=== PATIENT | female | born 1970 | race Caucasian/White ===

== ENCOUNTER 2018-07-03 23:00 | Emergency (ER) | payer BC ==
[2018-07-04] MEDS ORDERED: Activated Charcoal 50gm/240ml Btl ORAL ONE (00:03)
--- NOTE | 2018-07-04 05:00 | NUR ---
ED Nurse Note: SEE PAPER CHARTING FOR PREVIOUS NOTED, PT IS IN BED AWAKE, ALERT AND ORIENTED X 4, PT IS ON 5150 HOLD AND SUICIDAL PRECAUTIONS, IV SITE PATENT, V/S STABLE, NO SOB OR LABORED BREATHING, PT IS IN ROOM CALM AND COOPERATIVE, PLEASANTLY SLEPT ALL NIGHT, PT DENEIS CP OR ANY PAIN, NAD NOTED, WILL CONTINUE TO CLOSELY MONITOR.
[2018-07-04 06:00] LABS: ALANINE AMINOTRANSFERASE 26 U/L (12-78); ALBUMIN 3.7 G/DL (3.4-5.0); ALBUMIN/GLOBULIN RATIO 1.2 (1.0-2.7); ALKALINE PHOSPHATASE 34 U/L (46-116); ANION GAP 11 mmol/L (5-15); ASPARTATE AMINO TRANSFERASE 20 U/L (15-37); BILIRUBIN,TOTAL 0.1 MG/DL (0.2-1.0); BLOOD UREA NITROGEN 10 mg/dL (7-18); CARBON DIOXIDE 25 MMOL/L (21-32); CHLORIDE 105 MMOL/L (98-107); CREATININE 0.7 MG/DL (0.55-1.30); POTASSIUM 3.5 MMOL/L (3.5-5.1); SODIUM 141 MMOL/L (136-145)
[2018-07-04 06:06] LABS: COLOR,URINE PALE YELLOW
[2018-07-04 06:07] LABS: APPEARANCE,URINE CLEAR; BILIRUBIN, URINE NEGATIVE (NEGATIVE); GLUCOSE, URINE (UA) NEGATIVE (NEGATIVE); KETONES,URINE NEGATIVE (NEGATIVE); LEUKOCYTE ESTERASE ,URINE NEGATIVE (NEGATIVE); NITRITE,URINE NEGATIVE (NEGATIVE); PH,URINE 5 (4.5-8.0); PROTEIN,URINE NEGATIVE (NEGATIVE); UROBILINOGEN,URINE NORMAL MG/DL (0.0-1.0)
--- NOTE | 2018-07-04 06:07 | Emergency Room Report ---
History of Present Illness General Source: Patient, Medical Record, EMS Present Illness HPI This is a 47-year-old female with history bipolar. She presents with chief complaint of drug overdose. She had argument with her boyfriend in decided to kill herself by taking all of her Xanax and Klonopin. She claimed that she took a whole bottle of Xanax and about 20 tablets of Klonopin. She wrote a note and sent it to her friend. The friend called 911. This occurred about 2 hours prior to arrival. Patient denies any fever chills but denies any nausea vomiting. [place] depressed. Denies any other complaint. Police placed her on a 5150 hold. Patient History Past Medical History: see triage record, old chart reviewed, bipolar Past Surgical History: other Family History: none Social History: tobacco use, ETOH Now: No Immunizations: other Reviewed Nursing Documentation: PMH: Agreed; PSxH: Agreed Review of Systems ENT: Denies: sore throat Cardiovascular: Denies: chest pain, palpitations Gastrointestinal/Abdominal: Denies: nausea, vomiting, diarrhea Musculoskeletal: Denies: back problems Skin: Denies: rash Psychiatric: Reports: prior history, depression, suicidal/homicidal ideations Neurological: Denies: LAIRD, seizures All Other Systems: negative except mentioned in HPI Physical Exam [id number] EP Interpretation: reviewed, normal General Appearance: alert/responsive, no apparent distress, non-toxic Head: normocephalic, atraumatic Eyes: PERRL, EOMI ENT: oropharynx normal Neck: supple/symm/no masses Respiratory: effort normal, no rhonchi, no wheezing Cardiovascular: no murmur, gallop, rub Gastrointestinal: non-tender, no mass, non-distended, no rebound/guarding, normal bowel sounds Musculoskeletal: gait & station normal Neurologic: oriented x3, sensory intact, motor strength/tone normal Skin: no rash, normal palpation Medical Decision Making Diagnostic Impression: Primary Impression: Overdose of benzodiazepine Qualified Codes: T42.4X2A - Poisoning by benzodiazepines, intentional self- harm, initial encounter Additional Impression: Suicidal overdose Qualified Codes: T50.902A - Poisoning by unspecified drugs, medicaments and biological substances, intentional self-harm, initial encounter ER Course She presents with overdose on large amount of benzodiazepine. This is unlikely however because she is not sleeping at all. She is awake and talking normally. She is actually asking for sleeping medication. She is on a 5150 hold. She is medically clear for psychiatric evaluation. Lab Results Impression labs unremarkable EKG Diagnostic Results Rate: normal Rhythm: NSR ST Segments: no acute changes Rhythm Strip Diag. Results EP Interpretation: yes Rate: 80 Rhythm: NSR, no PVC's, no ectopy Status: improved Disposition: XFER TO PSYCH HOSP/UNIT Condition: Stable Referrals: NON PHYSICIAN (PCP) Tyler Mcgowan MD Jul 04, 2018 06:07
[2018-07-04 06:10] LABS: HEMATOCRIT 39.4 % (37.0-47.0); MEAN CORPUSCULAR VOLUME 89 FL (80-99); RED BLOOD COUNT 4.55 M/UL (4.20-5.40); WHITE BLOOD COUNT 5.1 K/UL (4.8-10.8)
[2018-07-04 06:11] LABS: BASOPHILS % (AUTO) 0.9 % (0.0-2.0); EOSINOPHILS % (AUTO) 3.6 % (0.0-3.0); LYMPHOCYTES % (AUTO) 48.5 % (20.0-45.0); MONOCYTES % (AUTO) 8.4 % (1.0-10.0); NEUTROPHILS % (AUTO) 38.6 % (45.0-75.0); PLATELET COUNT 232 K/UL (150-450); RED CELL DISTRIBUTION WIDTH 12.5 % (11.6-14.8)
--- NOTE | 2018-07-04 07:15 | NUR ---
HAND-OFF: Report given to []. SHIFT REPORT GIVEN, PT TO BE TRANSFERRED, ALL INFO GIVEN TO AM RECIEVING NURSE, PT IN ROOM RESTING QUIETLY, ON MONITORING, HAS PATENT SALINE LOCK IN LEFT AC, NAD NOTED DURING SHIFT CHANGE.
--- NOTE | 2018-07-04 08:53 | NUR ---
ED Nurse Note: Report given to Cruzito CEDENO at [facility]. A/O X4, ambulatory. patient denies any SI at this time.
[2018-07-04 08:55] VITALS: BP 102/87
[2018-07-04 10:17] VITALS: BP 102/87
--- NOTE | 2018-07-04 10:18 | NUR ---
ED Nurse Note: removed Left ac 20g IV without complication
--- NOTE | 2018-07-04 10:19 | NUR ---
ED Nurse Note: patient is being transferred to [facility] via [facility]. Endorsed all of her belongings to Ambulance Personnel. packet given. Patient is a/o x4 ambulatory.
== END 2018-07-04 10:18 ==
LOC: EMR 23:00
DX: T42.4X2A Poisoning by benzodiazepines, intentional self-harm, initial encounter (principal); T50.902A Poisoning by unspecified drugs, medicaments and biological substances, intentional self-harm, initial encounter; F32.9 Major depressive disorder, single episode, unspecified; X58.XXXA Exposure to other specified factors, initial encounter
CPT/HCPCS: 36415; 80053; 80307; 81003; 81025; 85025; 99284; G0480; 80329